=== PATIENT | female | born 1955 | race Two or more races ===

== ENCOUNTER 2019-11-13 06:31 | Inpatient (IN) | payer OTHER ==
[~2019-11-13] VITALS: Ht 172.7 cm; Wt 81.2 kg
[~2019-11-13 06:31] MED LIST: ANESTHESIA TRAY IN PYXIS 1 EA TRAY MC ONE; BUPIVACAINE 0.5 % PF 150 MG/30 ML VIAL ONE
[2019-11-13] MEDS ORDERED: HYDROMORPHONE INJ 2 MG/ML DISP.SYRIN ONE (06:56)
[2019-11-13] MEDS ORDERED: ONDANSETRON HCL/PF 4 MG/2 ML VIAL IV PRN (07:30)
[2019-11-13] MEDS ORDERED: MORPHINE SULFATE INJ 4 MG/ML DISP.SYRIN IM/IV/SC PRN (07:30)
[2019-11-13] MEDS ORDERED: BISACODYL SUPP (10 MG) 10 MG/SUPP.RECT SUPP.RECT RC PRN ×2 (07:30→10:00)
[2019-11-13] MEDS ORDERED: CLONIDINE HCL 0.1 MG TABLET PO PRN (07:30)
[2019-11-13] MEDS ORDERED: TRANEXAMIC ACID 3,000 MG in SODIUM CHLORIDE IRRIG SOLUTION 70 ML IR ONE (07:30)
[2019-11-13] MEDS ORDERED: MAGNESIUM HYDROXIDE 30 ML UDC PO PRN ×2 (07:30→12:00)
[2019-11-13] MEDS ORDERED: diphenhydrAMINE HCL 25 MG CAPSULE PO PRN (07:30)
[2019-11-13] MEDS ORDERED: MAG HYDROX/AL HYDROX/SIMETH 30 ML UDC PO PRN ×2 (07:30→12:00)
[2019-11-13] MEDS ORDERED: BACITRACIN 50000 UNITS/VIAL ONE (07:41)
[2019-11-13] MEDS ORDERED: BUPIVACAINE 0.5 % PF 150 MG/30 ML VIAL ONE (08:28)
[2019-11-13] MEDS: DOCUSATE SODIUM 100 MG CAPSULE PO SCH ×2 (09:00→16:27)
[2019-11-13] MEDS: NICOTINE PATCH (21MG) 21 MG PATCH.TD24 TD SCH (09:00)
[2019-11-13] MEDS ORDERED: FAMOTIDINE (20 MG) 20 MG TABLET PO SCH (09:00)
[2019-11-13] MEDS ORDERED: ZOLPIDEM TARTRATE 5 MG TABLET PO PRN (10:00)
[2019-11-13] MEDS ORDERED: IV D5/0.45 NACL 1,000 ML IV PRN (10:00)
[2019-11-13] MEDS ORDERED: DOCUSATE SODIUM 250 MG CAPSULE PO PRN (10:00)
[2019-11-13] MEDS ORDERED: SENNOSIDES 8.6 MG TABLET PO PRN (10:00)
[2019-11-13 10:30] VITALS: BP 129/77
[2019-11-13] MEDS: HYDROCODONE/APAP 10/325MG 1 EA TABLET PO PRN ×2 (10:30→14:11)
--- NOTE | 2019-11-13 10:30 | NUR ---
ADMIT TO [facility] PT BROUGHT IN FROM OR S/P R KNEE ARTHROPLASTY BY DR. BENTON. HX OF HTN, GI CANCER, BREAST CANCER, L MASTECTOMY. NO BP, NO IM NO BLOOD DRAW ON L ARM. IV ACCESS NOTED ON MARTA G20 D51/2 NS RUNNING AT 125ML/HR. PT ON REGULAR DIET. VS CHECKED NOTED AT T= 98.3, P= 63, RR=18, BX=099/77, O2 SAT= 98% ON ROOM AIR. PT IS STABLE AT THIS TIME. COMPLAINED OF PAIN ON R KNEE. NORCO 10/325MG ADMINISTERED.
--- NOTE | 2019-11-13 11:00 | NUR ---
BLADDER SCAN DOROTA MENA ORDERED BLADDER SCAN. PT NOTED WITH 300ML. STRAIGHT CATH ORDERED AND DONE PER DOROTA MENA. TOOK OUT 400ML OF URINE. URINE NOTED TO BE CLEAR AND YELLOW.
--- NOTE | 2019-11-13 11:30 | NUR ---
PAIN MGMT CONSULT NOTIFIED DR RASHEED RE: PAIN MANAGEMENT CONSULT. PER DR RASHEED HE ALREADY SAW PT IN THE OR.
--- NOTE | 2019-11-13 11:30 | NUR ---
PT VOIDING PT WITH NO URINARY RETENTION NOTED. VOIDED 300ML OF URINE. PT STATES. "OMG! I FEEL SO MUCH BETTER."
[2019-11-13] MEDS ORDERED: IV NS 0.9% 1,000 ML IV PRN (11:47)
[2019-11-13] MEDS ORDERED: PANTOPRAZOLE 40 MG VIAL IV SCH (11:58)
[2019-11-13] MEDS ORDERED: Z GUARD REMEDY 2 OZ OINT TP PRN (12:00)
[2019-11-13] MEDS ORDERED: ONDANSETRON HCL/PF 4 MG/2 ML VIAL IVP PRN (12:00)
[2019-11-13] MEDS ORDERED: ACETAMINOPHEN 325 MG TABLET PO PRN (12:00)
[2019-11-13] MEDS ORDERED: NICOTINE PATCH (21MG) 21 MG PATCH.TD24 TD SCH (12:00)
[2019-11-13] MEDS: MORPHINE SULFATE INJ 4 MG/ML DISP.SYRIN IM PRN ×3 (13:09→20:34)
[2019-11-13] MEDS ORDERED: HYDR-4354 PO (14:02)
[2019-11-13] MEDS ORDERED: TRAZ-257 PO (14:02)
[2019-11-13] MEDS ORDERED: TRIA1CAP6 PO (14:02)
[2019-11-13] MEDS ORDERED: ATOR10TA PO (14:06)
[2019-11-13] MEDS ORDERED: PANT40TA2 PO (14:06)
[2019-11-13] MEDS ORDERED: ASPI-605 PO (14:06)
[2019-11-13] MEDS ORDERED: METO-357 PO (14:06)
--- NOTE | 2019-11-13 16:00 | NUR ---
URINE COLLECTED URINE COLLECTED FOR UA.
[2019-11-13] MEDS: ANCEF 1 GM/50 ML D5W IV SCH ×2 (16:33)
--- NOTE | 2019-11-13 18:18 | NUR ---
MS RN CLOSING NOTES PT IN BED AWAKE ALERT AND ORIENTED X4. S/P R KNEE ARTHROPLASTY BY DR. BENTON. NO CARDIAC OR RESPIRATORY DISTRESS NOTED. NO C/O PAIN OR DISCOMFORT AT TIME. PT PAIN MANAGED THROUGHOUT THE SHIFT. IV ACCESS NOTED ON MARTA G20 D51/2 NS RUNNING AT 125ML/HR. NO SOB NOTED. PT SATURATING WELL ON ROOM AIR. ROOM AIR. PT IS STABLE AT THIS TIME.
--- NOTE | 2019-11-13 19:40 | NUR ---
RN Notes Patient awake and alert oriented x4, on room air and tolerated well. Pain at tolerable level at this time /. IV access on Right upper arm patent and intact with ongoing IVF infusing well. Right lower extremity with immobilizer and elevated on a pillow. Plan of care and fall precaution discussed with the patient and verbalized understanding. Safety measure and fall precaution in place with call light within reach. Kept comfortable and attended. Will continue to monitor.
[2019-11-13 20:00] VITALS: BP 118/56
--- NOTE | 2019-11-13 20:34 | NUR ---
RN Notes Patient complains of pain on her right knee 8/, Morphine 4 mg given IVP. Will continue to monitor.
[2019-11-13] MEDS: METOPROLOL SUCCINATE 50 MG TAB.SR.24H PO SCH (20:50)
--- NOTE | 2019-11-13 20:50 | NUR ---
RN Notes BP 118/56, HR 78, patient refused for the scheduled Toprol XL 50 mg tab. Per patient if she will take it will make her BP lower. Will continue to monitor.
[2019-11-13 22:00] VITALS: BP 118/56
[2019-11-13] MEDS: TRAZODONE 50 MG TABLET PO SCH (22:10)
[2019-11-14] MEDS: ANCEF 1 GM/50 ML D5W IV SCH ×2 (00:31)
[2019-11-14] MEDS: MORPHINE SULFATE INJ 4 MG/ML DISP.SYRIN IM PRN ×3 (00:32→06:48)
--- NOTE | 2019-11-14 00:32 | NUR ---
RN Notes Patient complains of pain in her right knee, 04/26. Morphine 4 mg given IVP. Will continue to monitor.
[2019-11-14 01:08] LABS: APPEARANCE,URINE SL CLOUDY (CLEAR); BILIRUBIN,URINE NEGATIVE (NEGATIVE); BLOOD, URINE NEGATIVE Ery/uL (NEGATIVE); COLOR,URINE YELLOW (YELLOW); KETONES,URINE NEGATIVE (NEGATIVE); LEUKOCYTE ESTERASE ,URINE NEGATIVE (NEGATIVE); NITRITE, URINE NEGATIVE (NEGATIVE); PH,URINE 6.5 (5.0-8.0); PROTEIN,URINE NEGATIVE (NEGATIVE); UGLUCOSE NEGATIVE (NEGATIVE); UROBILINOGEN,URINE 0.2 EU/dL (0.2)
--- NOTE | 2019-11-14 03:46 | NUR ---
RN Notes Patient complains of knee pain , 05/27. Morphine 4 mg given IM on left upper thigh. Will continue to monitor.
[2019-11-14 06:45] LABS: BASOPHILS % (AUTO) 0.2 % (0.0-2.0); HEMATOCRIT 35 % (33-45); HEMOGLOBIN 11.2 g/dL (11.5-14.8); LYMPHOCYTES # (AUTO) 1.6 /CMM (0.8-4.8); LYMPHOCYTES % (AUTO) 20.6 % (20.0-44.0); MEAN CORPUSCULAR HGB CONC 32 g/dl (31.0-36.0); MEAN CORPUSCULAR VOLUME 78 fL (82-100); MONOCYTES # (AUTO) 0.6 /CMM (0.1-1.30); MONOCYTES % (AUTO) 8.4 % (2.0-12.0); NEUTROPHILS # (AUTO) 5.5 /CMM (1.8-8.9); NEUTROPHILS % (AUTO) 70.8 % (43.0-81.0); PLATELET COUNT (AUTO) 173 /CMM (150-450); RED BLOOD CELL COUNT(AUTO) 4.48 MIL/uL (4.0-5.2); WHITE BLOOD COUNT (AUTO) 7.7 K/uL (4.3-11.0)
--- NOTE | 2019-11-14 06:48 | NUR ---
RN Notes Patient complains of right knee pain, 05/27. Morphine 4 mg given IVP. Will continue to monitor.
--- NOTE | 2019-11-14 06:59 | NUR ---
RN Notes Pain managed with current regimen, Morphine 4 mg may give IVP per Dr Wright. Current diet tolerated well, denies nausea and vomiting. Voiding well with adequate output. Kept right lower leg elevated on pillow. Fall precaution observed. All needs met. Will endorse accordingly.
[2019-11-14 07:04] LABS: CALCIUM, SERUM 8.2 mg/dL (8.5-10.1); CREATININE 0.8 mg/dL (0.6-1.3); PHOSPHORUS 3.2 mg/dL (2.5-4.9); POTASSIUM 2.9 mmol/L (3.5-5.1)
[2019-11-14 07:09] LABS: THYROID STIMULATING HORMONE 0.515 uIU/mL (0.358-3.74)
--- NOTE | 2019-11-14 07:30 | NUR ---
RN Notes Received Patient in bed resting comfortably in moderate high back rest. a/o x4, on room air and tolerated well. no signs of distress noted at this time. IV access on Right upper arm patent and intact with ongoing IVF infusing well. noted with Right lower extremity with immobilizer and elevated on a pillow. [facility] bed in lowest locked position with side rails up x2. call light within reach. Will continue to monitor.
[2019-11-14 07:41] LABS: MAGNESIUM 1.1 mg/dL (1.8-2.4)
[2019-11-14 08:00] VITALS: BP 140/73
[2019-11-14] MEDS: NICOTINE PATCH (21MG) 21 MG PATCH.TD24 TD SCH (08:36)
[2019-11-14] MEDS: ASPIRIN 325 MG TABLET PO SCH (08:37)
[2019-11-14] MEDS: DOCUSATE SODIUM 100 MG CAPSULE PO SCH ×2 (08:37→16:07)
[2019-11-14] MEDS: METOPROLOL SUCCINATE 50 MG TAB.SR.24H PO SCH ×2 (08:37→20:07)
[2019-11-14] MEDS: HYDROCODONE/APAP 10/325MG 1 EA TABLET PO PRN ×3 (08:37→20:08)
[2019-11-14] MEDS: TRIAMTERENE/HYDROCHLOROTHIAZID (37.5/25MG) 1 UDCAP PO SCH (08:38)
[2019-11-14] MEDS: PANTOPRAZOLE 40 MG TABLET.DR PO SCH ×2 (08:38→08:55)
[2019-11-14] MEDS: Magnesium 1GM/D5W 100ML PREMIX 100 ML IV SCH ×4 (09:01→13:02)
[2019-11-14] MEDS: MORPHINE SULFATE INJ 4 MG/ML DISP.SYRIN IVP PRN ×4 (10:05→21:49)
[2019-11-14] MEDS: POTASSIUM CHLORIDE 20 MEQ TAB.PRT.SR PO SCH ×3 (11:28→13:44)
[2019-11-14 16:10] VITALS: BP 133/76
--- NOTE | 2019-11-14 18:34 | NUR ---
RN Notes Patient in bed resting comfortably in moderate high back rest. a/o x4, on room air and tolerated well. no signs of distress noted throughout the shift. IV access on Right upper arm patent and intact with ongoing IVF infusing well. noted with Right lower extremity with immobilizer and elevated on a pillow. all due meds given. [facility] bed in lowest locked position with side rails up x2. call light within reach. Will endorse to material handler 2nd shift nurse for [email or web address].
--- NOTE | 2019-11-14 19:05 | NUR ---
MS RN OPENING NOTES PATIENT SLEEPING IN BED, EASY TO AWAKEN. A/O X4. ON ROOM AIR. NO S/S OF ACUTE RESPIRATORY OR C/O PAIN AT THIS TIME. IV PRESENT ON RIGHT UPPER ARM, SIZE 20, INTACT & PATENT, HEP LOCKED. RIGHT LEG STABILIZED WITH IMMOBILIZER AND ELEVATED WITH PILLOW. SAFETY MEASURES IN PLACE. BED LOCKED, SIDE RAILS X2, CALL LIGHT WITHIN REACH. WILL CONTINUE TO MONITOR.
[2019-11-14 20:00] VITALS: BP 137/79
[2019-11-14] MEDS: ATORVASTATIN 10 MG TABLET PO SCH (20:07)
[2019-11-14] MEDS: TRAZODONE 50 MG TABLET PO SCH (21:48)
[2019-11-15] MEDS: MORPHINE SULFATE INJ 4 MG/ML DISP.SYRIN IVP PRN ×7 (01:12→20:40)
[2019-11-15 04:30] VITALS: BP 145/75
--- NOTE | 2019-11-15 07:26 | NUR ---
MS RN CLOSING NOTES PATIENT AWAKE IN BED, EASY TO AWAKEN. A/O X4. ON ROOM AIR. NO S/S OF ACUTE RESPIRATORY OR C/O PAIN AT THIS TIME. IV PRESENT ON RIGHT UPPER ARM, SIZE 20, INTACT & PATENT, HEP LOCKED. RIGHT LEG STABILIZED WITH IMMOBILIZER AND ELEVATED WITH PILLOW. SAFETY MEASURES IN PLACE. BED LOCKED, SIDE RAILS X2, CALL LIGHT WITHIN REACH. WILL ENDORSE TO DAY SHIFT NURSE TO FOLLOW PLAN OF CARE
--- NOTE | 2019-11-15 07:40 | NUR ---
MS/RN OPENING NOTE Patient is resting in bed, A/O x4, showing no signs of acute distress or SOB, saturating 100% on RA. Patient is complaining to 9/10 pain in her right leg; morphine 4mg given at 0739 AM. S/P right knee arthroplasty on 11/13/[address] Ricks. Patient is not on CPM at this time. Incentive spirometer teaching implemented. Bed is in lowest position, side rails x2 in upright position, call light is within reach and patient is aware of how to call for assistance when needed. Will continue with plan of care.
[2019-11-15 08:00] VITALS: BP 150/69
[2019-11-15] MEDS: NICOTINE PATCH (21MG) 21 MG PATCH.TD24 TD SCH (08:25)
[2019-11-15] MEDS: PANTOPRAZOLE 40 MG TABLET.DR PO SCH (08:26)
[2019-11-15] MEDS: METOPROLOL SUCCINATE 50 MG TAB.SR.24H PO SCH ×2 (08:26→20:40)
[2019-11-15] MEDS: ASPIRIN 325 MG TABLET PO SCH (08:26)
[2019-11-15] MEDS: DOCUSATE SODIUM 100 MG CAPSULE PO SCH ×2 (08:27→16:56)
[2019-11-15] MEDS: TRIAMTERENE/HYDROCHLOROTHIAZID (37.5/25MG) 1 UDCAP PO SCH (08:28)
[2019-11-15] MEDS ORDERED: Magnesium 1GM/D5W 100ML PREMIX 100 ML IV SCH (09:00)
[2019-11-15] MEDS ORDERED: MAGNESIUM OXIDE 400 MG TABLET PO SCH (09:00)
[2019-11-15 10:11] VITALS: BP 150/69
[2019-11-15 12:52] LABS: BASOPHILS % (AUTO) 0.1 % (0.0-2.0); EOSINOPHILS % (AUTO) 0.1 % (0.0-6.0); HEMATOCRIT 33 % (33-45); HEMOGLOBIN 10.5 g/dL (11.5-14.8); LYMPHOCYTES # (AUTO) 1.7 /CMM (0.8-4.8); LYMPHOCYTES % (AUTO) 17.8 % (20.0-44.0); MEAN CORPUSCULAR HGB CONC 32 g/dl (31.0-36.0); MEAN CORPUSCULAR VOLUME 79 fL (82-100); MONOCYTES # (AUTO) 0.9 /CMM (0.1-1.30); NEUTROPHILS # (AUTO) 7.1 /CMM (1.8-8.9); PLATELET COUNT (AUTO) 178 /CMM (150-450); RED BLOOD CELL COUNT(AUTO) 4.15 MIL/uL (4.0-5.2); WHITE BLOOD COUNT (AUTO) 9.7 K/uL (4.3-11.0)
[2019-11-15 13:06] LABS: CALCIUM, SERUM 8.6 mg/dL (8.5-10.1); CREATININE 0.7 mg/dL (0.6-1.3); MAGNESIUM 1.6 mg/dL (1.8-2.4); PHOSPHORUS 3.1 mg/dL (2.5-4.9); POTASSIUM 3.3 mmol/L (3.5-5.1)
[2019-11-15] MEDS ORDERED: POTASSIUM CHLORIDE 20 MEQ TAB.PRT.SR PO SCH (15:00)
[2019-11-15] MEDS: Magnesium 1GM/D5W 100ML PREMIX 100 ML IV SCH ×2 (15:12→16:33)
[2019-11-15] MEDS: HYDROCODONE/APAP 10/325MG 1 EA TABLET PO PRN ×2 (15:12→22:46)
[2019-11-15 16:00] VITALS: BP 150/74
[2019-11-15 17:08] VITALS: BP 150/74
--- NOTE | 2019-11-15 19:42 | NUR ---
MS/RN CLOSING NOTE Patient is resting in bed, A/O x4, showing no signs of acute distress or SOB, saturating 100% on RA. Iv line is clean and intact. All patient needs met, all due meds given. Bed is in lowest position, side rails x2 in upright position, call light is within reach and patient is aware of how to call for assistance when needed. Will endorse to power and recovery shift engineer.
--- NOTE | 2019-11-15 20:00 | NUR ---
RN NOTES PATIENT ALERT AND ORIENTED X4, ON ROOM AIR, S.P RIGHT KNEE SURGERY, PAIN OF 8/10, SCD IN PLACE, UNABLE TO AMBULATE YET, DENIES NUMBNESS TO BLE, USES BEDPAN, WILL CONTINUE TO MONITOR
[2019-11-15 20:16] VITALS: BP 143/73
--- NOTE | 2019-11-15 21:11 | NUR ---
RN NOTES PT COMPLAINING OF URINARY FREQUENCY AND PAINFUL URINATION, NOTIFIED DR. OQUENDO, NEW ORDERS OF REPEAT UA AND PYRIDIUM TID
[2019-11-15] MEDS ORDERED: PHENAZOPYRIDINE HCL 200 MG TABLET PO PRN (21:30)
[2019-11-15] MEDS: TRAZODONE 50 MG TABLET PO SCH (21:34)
[2019-11-15 22:49] LABS: APPEARANCE,URINE CLEAR (CLEAR); BILIRUBIN,URINE NEGATIVE (NEGATIVE); BLOOD, URINE NEGATIVE Ery/uL (NEGATIVE); COLOR,URINE YELLOW (YELLOW); KETONES,URINE NEGATIVE (NEGATIVE); LEUKOCYTE ESTERASE ,URINE NEGATIVE (NEGATIVE); NITRITE, URINE NEGATIVE (NEGATIVE); PH,URINE 6.5 (5.0-8.0); PROTEIN,URINE NEGATIVE (NEGATIVE); UGLUCOSE NEGATIVE (NEGATIVE)
[2019-11-15 22:53] LABS: RBC,URINE 0-2 /HPF (0-2)
[2019-11-15 22:54] LABS: BACTERIA,URINE Few /HPF (None Seen); SQUAMOUS EPITHELIAL CELL,UR Moderate /HPF (None Seen)
[2019-11-16] MEDS: MORPHINE SULFATE INJ 4 MG/ML DISP.SYRIN IVP PRN ×5 (00:49→20:03)
[2019-11-16] MEDS: HYDROCODONE/APAP 10/325MG 1 EA TABLET PO PRN ×3 (04:10→21:15)
[2019-11-16 08:00] VITALS: BP 125/64
[2019-11-16] MEDS: ASPIRIN 325 MG TABLET PO SCH (09:28)
[2019-11-16] MEDS: PANTOPRAZOLE 40 MG TABLET.DR PO SCH (09:28)
[2019-11-16] MEDS: TRIAMTERENE/HYDROCHLOROTHIAZID (37.5/25MG) 1 UDCAP PO SCH (09:28)
[2019-11-16] MEDS: NICOTINE PATCH (21MG) 21 MG PATCH.TD24 TD SCH (09:29)
[2019-11-16] MEDS: METOPROLOL SUCCINATE 50 MG TAB.SR.24H PO SCH ×2 (09:29→20:52)
[2019-11-16] MEDS: DOCUSATE SODIUM 100 MG CAPSULE PO SCH ×2 (09:30→16:54)
[2019-11-16] MEDS: ATORVASTATIN 10 MG TABLET PO SCH (09:30)
[2019-11-16 10:07] LABS: BASOPHILS % (AUTO) 0.5 % (0.0-2.0); EOSINOPHILS % (AUTO) 0.5 % (0.0-6.0); HEMATOCRIT 31 % (33-45); HEMOGLOBIN 10.1 g/dL (11.5-14.8); LYMPHOCYTES # (AUTO) 1.8 /CMM (0.8-4.8); LYMPHOCYTES % (AUTO) 21.7 % (20.0-44.0); MEAN CORPUSCULAR HGB CONC 32 g/dl (31.0-36.0); MEAN CORPUSCULAR VOLUME 79 fL (82-100); MONOCYTES # (AUTO) 0.7 /CMM (0.1-1.30); MONOCYTES % (AUTO) 8.3 % (2.0-12.0); NEUTROPHILS # (AUTO) 5.7 /CMM (1.8-8.9); PLATELET COUNT (AUTO) 169 /CMM (150-450); RED BLOOD CELL COUNT(AUTO) 3.98 MIL/uL (4.0-5.2); WHITE BLOOD COUNT (AUTO) 8.4 K/uL (4.3-11.0)
[2019-11-16 10:13] LABS: CALCIUM, SERUM 8.6 mg/dL (8.5-10.1); CREATININE 0.8 mg/dL (0.6-1.3); MAGNESIUM 1.7 mg/dL (1.8-2.4); PHOSPHORUS 3.4 mg/dL (2.5-4.9); POTASSIUM 3.3 mmol/L (3.5-5.1)
--- NOTE | 2019-11-16 11:01 | NUR ---
Pt c/o bladder feeling full and uncomfortable. Pt unable to urinate at this time. Bladder scan revealed >[address] Savi Anglin.
--- NOTE | 2019-11-16 11:05 | NUR ---
Notified Savi Anglin NP re: Pt c/o bladder feeling full and uncomfortable. Pt unable to urinate at this time. Bladder scan revealed >775 ml fluid. Received order to straight catheterize pt. Will carry out.
--- NOTE | 2019-11-16 11:30 | NUR ---
Performed sterile technique for in and out straight catheterization per MD orders. 800 ml orange colored urine out. Pt reported relief. Monitoring continued.
[2019-11-16 16:00] VITALS: BP 126/73
[2019-11-16] MEDS ORDERED: DOCU-270 PO (16:18)
[2019-11-16] MEDS ORDERED: Hydrocodone/Apap 10/325MG PO (16:18)
[2019-11-16] MEDS ORDERED: DIPH25CA49 PO (16:18)
[2019-11-16] MEDS ORDERED: SENN-168 PO (16:18)
[2019-11-16] MEDS ORDERED: PHEN-895 PO (16:18)
[2019-11-16] MEDS ORDERED: BISA10SU11 RC (16:18)
[2019-11-16] MEDS ORDERED: MAGN400O6 PO (16:18)
[2019-11-16] MEDS ORDERED: NICO-677 TD (16:18)
[2019-11-16] MEDS ORDERED: CLON0.1T14 PO (16:18)
--- NOTE | 2019-11-16 19:57 | NUR ---
MS RN NOTES RECEIVED PATIENT AWAKE IN BED WITH NO DISTRESS NOTED. CALL LIGHT WITHIN REACH. NO C/O PAIN OR DISCOMFORT. PERIPHERAL LINE INTACT AND PATENT. ENCOURAGED USE OF CALL LIGHT FOR ASSISTANCE AND VERBALIZED GOOD UNDERSTANDING. ROOM FREE OF CLUTTER AND BELONGINGS KEPT NEAR BEDSIDE. WILL CONTINUE TO MONITOR
[2019-11-16 20:00] VITALS: BP 137/74
[2019-11-16] MEDS: TRAZODONE 50 MG TABLET PO SCH (22:25)
--- NOTE | 2019-11-17 | NUR ---
PVR 352ML, REFUSES STRAIGHT CATH DESPITE EXPLANATIONS OF RISKS/BENEFITS. PER PATIENT WANTS TO TRY TO CONTINUE TO URINATE BY SELF AND IF PVR >300ML DURING 0600 CHECK, SHE WILL ALLOW FOR STRAIGHT CATH. WILL CONTINUE TO MONITOR
[2019-11-17] MEDS: MORPHINE SULFATE INJ 4 MG/ML DISP.SYRIN IVP PRN ×7 (00:12→20:43)
--- NOTE | 2019-11-17 06:02 | NUR ---
PVR 394ML, STRAIGHT CATH PERFORMED AND REMOVED 600ML CLEAR DARK ORANGE URINE (D/T PYRIDIUM DOSE). PATIENT TOLERATED WELL.
--- NOTE | 2019-11-17 06:31 | NUR ---
MS RN NOTES PATIENT AWAKE IN BED WITH NO DISTRESS NOTED. CALL LIGHT WITHIN REACH. RIGHT LEG DRESSING CLEAN DRY AND INTACT. NO FURTHER C/O PAIN OR DISCOMFORT. PERIPHERAL LINE INTACT AND PATENT. ROOM FREE OF CLUTTER AND BELONGINGS KEPT NEAR BEDSIDE. BED IN LOW LOCK SETTING. WILL ENDORSE TO ONCOMING SHIFT
[2019-11-17 08:00] VITALS: BP 126/66
--- NOTE | 2019-11-17 08:00 | NUR ---
MS RN OPENING NOTES ADMIT TO [facility] RECEIVED PT IN BED. AWAKE ALERT AND ORIENTED X4. NO CARDIAC OR RESP DISTRESS NOTED. C/O PAIN ON RLE. ADMINISTERED MORPHINE PRN FOR SEVERE PAIN ORDERED. PT HAS A SURGICAL INCISION ON R KNEE. DRESSING IS CLEAN AND INTACT. IV ACCESS NOTED ON R AC G18. PATENT AND INTACT. ON SALINE LOCK. NO S/S OF INFILTRATION OR INFECTION NOTED. WILL CONTINUE TO MONITOR.
[2019-11-17] MEDS: PANTOPRAZOLE 40 MG TABLET.DR PO SCH (08:14)
[2019-11-17] MEDS: DOCUSATE SODIUM 100 MG CAPSULE PO SCH ×2 (08:14→16:04)
[2019-11-17] MEDS: ASPIRIN 325 MG TABLET PO SCH (08:14)
[2019-11-17] MEDS: NICOTINE PATCH (21MG) 21 MG PATCH.TD24 TD SCH (08:14)
[2019-11-17] MEDS: METOPROLOL SUCCINATE 50 MG TAB.SR.24H PO SCH ×2 (08:14→20:35)
[2019-11-17] MEDS: TRIAMTERENE/HYDROCHLOROTHIAZID (37.5/25MG) 1 UDCAP PO SCH (08:17)
--- NOTE | 2019-11-17 10:00 | NUR ---
POST VOID RESIDUAL PERFORMED PVR WITH BLADDER SCAN. NOTED WITH 234ML OF URINE. NO ABD/BLADDER DISTENTION NOTED. PT ALSO REPORTS THAT SHE DOESNT FEEL THAT HER BLADDER IS FULL. STATED "I THINK IM OKAY"
--- NOTE | 2019-11-17 15:26 | NUR ---
REPORT TO SNF RN REPORT GIVEN TO VANE VALVERDE FROM [facility].
[2019-11-17 16:00] VITALS: BP 152/72
--- NOTE | 2019-11-17 19:30 | NUR ---
MS RN NOTES: RECEIVED PATIENT Patient in bed, A/O x4. Tolerating room air, denies SOB. Right knee with Scott wrap clean and dry, denies pain. Patient to be discharged to SNF today, awaiting transport. Fall precaution maintained.
[2019-11-17 20:07] VITALS: BP 122/70
[2019-11-17 20:35] VITALS: BP 122/70
--- NOTE | 2019-11-17 20:43 | NUR ---
MS RN NOTES: PAIN MEDICATION Patient c/o right knee pain 8/10, able to move RLE decrease ROM due to pain. Indication and possible side effect provided, PRN Morphine given, will reassess.
--- NOTE | 2019-11-17 21:13 | NUR ---
MS RN NOTES: PAIN REASSESSMENT Patient reports pain level 3/10 after PRN Morphine.
--- NOTE | 2019-11-17 21:16 | NUR ---
MS RN NOTES: DISCHARGED Patient has been cleared for discharge to SNF by . Report to SNF given by NICOLLE Mensah prior discharged. Transport arrived, patient left hosp in stable condition via Ambulance. REINIER Browne assist with all personal belongings and send with the patient upon dc.
== END 2019-11-17 21:10 | DRG 470 ==
LOC: DS 06:31 → MED 09:51
PROVIDERS: ADMIT Registered Nurse; ATTEND Registered Nurse
PROC: 0SRC0J9 Replacement of Right Knee Joint with Synthetic Substitute, Cemented, Open Approach (ICD-10-PCS; principal; 2019-11-13)
DX: M17.11 Unilateral primary osteoarthritis, right knee (principal); I10 Essential (primary) hypertension; K21.9 Gastro-esophageal reflux disease without esophagitis; Z85.3 Personal history of malignant neoplasm of breast; E66.9 Obesity, unspecified; E78.5 Hyperlipidemia, unspecified; Z80.0 Family history of malignant neoplasm of digestive organs; Z82.49 Family history of ischemic heart disease and other diseases of the circulatory system; Z85.00 Personal history of malignant neoplasm of unspecified digestive organ; Z88.5 Allergy status to narcotic agent; R33.9 Retention of urine, unspecified; Z72.0 Tobacco use
CPT/HCPCS: 36415; 80048-TC; 80061-TC; 81000-TC; 83735-TC; 84100-TC; 84443-TC; 85025-TC; 87081-TC; 87086-TC; 87186-TC; 88305-TC; 88311-TC; 97110-TC; 97116-TC; 97530-TC; 97760-TC; G0378; J0690; J1100; J1170; J1885; J2270; J2405; J2704; J3475; J3490; J7060